=== PATIENT | male | born 1955 | race Caucasian/White ===

== ENCOUNTER 2024-04-18 17:51 | Emergency (ER) | payer OTHER ==
[2024-04-18 18:24] VITALS: BMI 25.1
[2024-04-18] MEDS: ACETAMINOPHEN 1000 MG/100 ML BAG IVPB ONE (19:30)
[2024-04-18] MEDS: ONDANSETRON 4 MG/2 ML VIAL IVPB ONE (19:50)
[2024-04-18 19:58] LABS: BASO % 0.6 % (0-2.0); EOS % 0.5 % (0-4.5); HEMATOCRIT 39.4 % (35.4-49); HEMOGLOBIN 13.2 GM/dL (11.7-16.9); LYMPH % 10.8 % (8-40); MCH 31.4 pg (25.7-33.7); MCHC 33.4 g/dl (32.0-35.9); MEAN CELL VOLUME 93.9 fl (80-96); MEAN PLT VOLUME 9.4 fl (7.5-11.1); MONO % 6.2 % (3.8-10.2); NEUT % 81.9 % (42.8-82.8); PLATELET COUNT 305 10^3/uL (134-434); RDW 15.9 % (11.9-15.9); WHITE BLOOD COUNT 9.2 K/mm3 (4.0-10.0)
[2024-04-18 20:16] LABS: POTASSIUM 4.8 mmol/L (3.5-5.1)
[2024-04-18 20:19] LABS: CALCIUM 9.4 mg/dL (8.5-10.1)
[2024-04-18 20:20] LABS: ALBUMIN 3.2 g/dl (3.4-5.0); BLOOD UREA NITROGEN 51.2 mg/dL (7-18)
[2024-04-18 20:24] LABS: BILIRUBIN,TOTAL 0.5 mg/dL (0.2-1)
[2024-04-19] MEDS: diphenhydrAMINE HCL 25 MG CAPSULE (FP) PO ONE (01:36)
[2024-04-19] MEDS ORDERED: diphenhydrAMINE HCL 25 MG CAPSULE (FP) PO ONE (01:38)
[2024-04-19] MEDS ORDERED: ACETAMINOPHEN 500 MG TABLET (FP) ONE (09:49)
[2024-04-19] MEDS ORDERED: ONDANSETRON *ODT* 4 MG TABLET ONE (09:50)
[2024-04-19] MEDS: ACETAMINOPHEN 325 MG TABLET (FP) PO ONE (09:56)
[2024-04-19] MEDS: ONDANSETRON *ODT* 4 MG TABLET SL ONE (09:57)
[2024-04-19 11:02] VITALS: BP 147/70; PULSE 105; RESP 20; TEMP 98.8
[2024-04-19 13:02] LABS: EPI CELLS 32 /uL (0-25.1); HYALINE CASTS 553 /uL (0-3.1); URINE APPEARANCE TURBID; URINE BACTERIA 1334 /uL (0-1359); URINE BILIRUBIN NEGATIVE (NEGATIVE); URINE COLOR YELLOW; URINE GLUCOSE (UA) NEGATIVE (NEGATIVE); URINE KETONE TRACE (NEGATIVE); URINE LEUK ESTERASE 3+ (NEGATIVE); URINE NITRITE NEGATIVE (NEGATIVE); URINE PROTEIN 4+ (NEGATIVE); URINE UROBILINOGEN 0.2 mg/dL (0.2-1.0); URINE WBC 36065 /uL (0-25.8)
[2024-04-19 13:22] LABS: URINE RBC 1155 /uL (0-23.9); YEAST NONE SEEN (NEGATIVE)
[2024-04-19] MEDS ORDERED: CEPHALEXIN MONOHYDRATE 500 MG CAPSULE (UD) ONE (13:57)
[2024-04-19] MEDS: CEPHALEXIN MONOHYDRATE 500 MG CAPSULE (UD) PO ONE (14:04)
== END 2024-04-19 14:28 ==
LOC: JER 17:51
PROC: 3E033NZ Introduction of Analgesics, Hypnotics, Sedatives into Peripheral Vein, Percutaneous Approach (ICD-10-PCS; principal; 2024-04-18)
PROC: 3E033GC Introduction of Other Therapeutic Substance into Peripheral Vein, Percutaneous Approach (ICD-10-PCS; 2024-04-18)
DX: N39.0 Urinary tract infection, site not specified (principal); R10.31 Right lower quadrant pain; R11.2 Nausea with vomiting, unspecified; T78.1XXA Other adverse food reactions, not elsewhere classified, initial encounter
CPT/HCPCS: 36415; 74176-TC; 80053; 81003; 83605; 83690; 85025; 87086; 87186; 93005; 93010; 99285-25; J0131; Q0162

== ENCOUNTER 2024-11-30 11:08 | Inpatient (IN) | payer OTHER ==
[2024-11-30 12:48] VITALS: BMI 33.4
[2024-11-30 12:53] LABS: BASO % 0.7 % (0-2.0); EOS % 2.5 % (0-4.5); HEMATOCRIT 31.5 % (35.4-49); HEMOGLOBIN 10.3 GM/dL (11.7-16.9); LYMPH % 24.4 % (8-40); MCH 31.8 pg (25.7-33.7); MCHC 32.7 g/dl (32.0-35.9); MEAN PLT VOLUME 8.2 fl (7.5-11.1); MONO % 9.2 % (3.8-10.2); NEUT % 63.2 % (42.8-82.8); PLATELET COUNT 272 10^3/uL (134-434); RBC 3.25 M/mm3 (4.00-5.60); RDW 15.9 % (11.9-15.9); WHITE BLOOD COUNT 7.1 K/mm3 (4.0-10.0)
[2024-11-30 13:00] LABS: INR 1.22 (0.83-1.09); PROTHROMBIN TIME (PATIENT) 13.4 SEC (9.7-13.0)
[2024-11-30 13:02] LABS: VENOUS BASE EXCESS -0.7 mmol/L (-2-2); VENOUS O2 SATURATION 33.7 % (70-80); VENOUS PH 7.295 (7.310-7.410)
[2024-11-30 13:03] LABS: ACTIVATED PTT 31.5 SECONDS (25.2-36.5)
[2024-11-30 13:13] LABS: CHLORIDE 105 mmol/L (98-107); POTASSIUM 5.4 mmol/L (3.5-5.1); SODIUM 140 mmol/L (136-145)
[2024-11-30 13:15] LABS: BLOOD UREA NITROGEN 95.2 mg/dL (7-18); CALCIUM 8.8 mg/dL (8.5-10.1)
[2024-11-30 13:16] LABS: ANION GAP 8 mmol/L (4-13); CO2 27 mmol/L (21-32); GLUCOSE,RANDOM 194 mg/dL (74-106); MAGNESIUM 2.6 mg/dL (1.8-2.4)
[2024-11-30 13:18] LABS: SGPT/ALT 15 U/L (13-61)
[2024-11-30 13:19] LABS: PHOSPHOROUS 4.7 mg/dL (2.5-4.9); SGOT/AST 10 U/L (15-37)
[2024-11-30 13:20] LABS: BILIRUBIN,TOTAL 0.3 mg/dL (0.2-1); TOT PROT 8.4 g/dl (6.4-8.2)
[2024-11-30 13:21] LABS: ALK PHOS 137 U/L (45-117)
[2024-11-30 13:31] LABS: ERYTHROCYTE SEDIMENTATION RATE 108 mm/hr (0-20)
[2024-11-30 13:35] LABS: CREATININE 8.9 mg/dL (0.55-1.3)
[2024-11-30] MEDS ORDERED: PIPERACILLIN/TAZOB 3.375 GM 3.375 GM/50 ML BAG IVPB ONE (13:40)
[2024-11-30] MEDS ORDERED: SODIUM ZIRCONIUM CYCLOSILICATE (LOKELMA) 10 GM PACKET ONE (13:40)
[2024-11-30] MEDS ORDERED: PIPERACILLIN/TAZOB 2.25 GM 2.25 GM/50 ML BAG IVPB ONE (14:09)
[2024-11-30] MEDS: SODIUM ZIRCONIUM CYCLOSILICATE (LOKELMA) 5 GM PACKET PO ONE (14:09)
[2024-11-30] MEDS: PIPERACILLIN/TAZOB 2.25 GM 2.25 GM in DEXTROSE 5%-WATER - 50 ML IVPB ONE (14:09)
[2024-11-30] MEDS ORDERED: VANCOMYCIN 1 GM PREMIX (F) 1 GM/200 ML BAG ONE (15:48)
[2024-11-30] MEDS: VANCOMYCIN 1,000 MG in DEXTROSE 5%-WATER - 250 ML IVPB ONE (15:49)
[2024-11-30] MEDS: SEVELAMER CARBONATE 800 MG TAB (FP) PO SCH (18:35)
[2024-11-30] MEDS: PIPERACILLIN/TAZOB 4.5 GM 4.5 GM/100 ML BAG IVPB SCH (23:03)
[2024-11-30] MEDS: SODIUM ZIRCONIUM CYCLOSILICATE (LOKELMA) 5 GM PACKET PO SCH (23:04)
[2024-11-30] MEDS: GABAPENTIN 300 MG CAPSULE PO SCH (23:05)
[2024-11-30] MEDS: COLLAGENASE CLOSTRIDIUM HIST. 30 GRAMS TUBE TP SCH (23:06)
[2024-11-30] MEDS: APIXABAN 2.5 MG TABLET PO SCH (23:06)
[2024-11-30] MEDS: ATORVASTATIN CA 20 MG TABLET (FP) PO SCH (23:06)
[2024-12-01] MEDS: HEPARIN NA (PORCINE) 5,000 UNITS/ML 1ML VIAL IVPUSH ONE (09:53)
[2024-12-01] MEDS ORDERED: SODIUM CHLORIDE 250 ML IV PRN (10:00)
[2024-12-01 10:14] LABS: BASO % 0.7 % (0-2.0); EOS % 3.1 % (0-4.5); HEMOGLOBIN 9.3 GM/dL (11.7-16.9); LYMPH % 20.3 % (8-40); MCHC 33.2 g/dl (32.0-35.9); MEAN CELL VOLUME 96.3 fl (80-96); MEAN PLT VOLUME 8.7 fl (7.5-11.1); MONO % 9.6 % (3.8-10.2); NEUT % 66.3 % (42.8-82.8); PLATELET COUNT 243 10^3/uL (134-434); RDW 15.4 % (11.9-15.9); WHITE BLOOD COUNT 6.5 K/mm3 (4.0-10.0)
[2024-12-01 11:42] LABS: CHLORIDE 102 mmol/L (98-107); POTASSIUM 4.7 mmol/L (3.5-5.1); SODIUM 137 mmol/L (136-145)
[2024-12-01 11:51] LABS: CALCIUM 8.5 mg/dL (8.5-10.1)
[2024-12-01 11:52] LABS: ALBUMIN 2.6 g/dl (3.4-5.0); ANION GAP 13 mmol/L (4-13); BLOOD UREA NITROGEN 97.4 mg/dL (7-18); CO2 23 mmol/L (21-32)
[2024-12-01 11:53] LABS: GLUCOSE,RANDOM 220 mg/dL (74-106)
[2024-12-01 11:55] LABS: SGOT/AST 12 U/L (15-37); SGPT/ALT 14 U/L (13-61)
[2024-12-01 11:56] LABS: BILIRUBIN,TOTAL 0.6 mg/dL (0.2-1)
[2024-12-01 11:57] LABS: TOT PROT 7.4 g/dl (6.4-8.2)
[2024-12-01 11:58] LABS: ALK PHOS 107 U/L (45-117)
[2024-12-01 12:29] LABS: CREATININE 9.1 mg/dL (0.55-1.3)
[2024-12-01] MEDS: ASPIRIN COATED 81 MG TABLET.EC PO SCH (12:35)
[2024-12-02 09:43] LABS: HEMATOCRIT 32.7 % (35.4-49); HEMOGLOBIN 10.3 GM/dL (11.7-16.9); MCH 31.1 pg (25.7-33.7); MCHC 31.7 g/dl (32.0-35.9); MEAN CELL VOLUME 98.4 fl (80-96); MEAN PLT VOLUME 8.6 fl (7.5-11.1); PLATELET COUNT 275 10^3/uL (134-434); RBC 3.32 M/mm3 (4.00-5.60); RDW 15.5 % (11.9-15.9)
[2024-12-02 10:03] LABS: POTASSIUM 4.4 mmol/L (3.5-5.1)
[2024-12-02 10:06] LABS: ALBUMIN 2.8 g/dl (3.4-5.0); CALCIUM 8.8 mg/dL (8.5-10.1); MAGNESIUM 2.2 mg/dL (1.8-2.4)
[2024-12-02 10:10] LABS: CREATININE 6.3 mg/dL (0.55-1.3); PHOSPHOROUS 4.8 mg/dL (2.5-4.9)
[2024-12-02 10:11] LABS: BILIRUBIN,TOTAL 0.4 mg/dL (0.2-1); BLOOD UREA NITROGEN 61.3 mg/dL (7-18); TOT PROT 8.5 g/dl (6.4-8.2)
[2024-12-02] MEDS: VANCOMYCIN 1 GM PREMIX (F) 1 GM/200 ML BAG IVPB ONE (15:03)
[2024-12-02] MEDS: PIPERACILLIN/TAZOB 4.5 GM 4.5 GM/100 ML BAG IVPB SCH (21:15)
[2024-12-03 09:09] LABS: HEMATOCRIT 29.1 % (35.4-49); HEMOGLOBIN 9.4 GM/dL (11.7-16.9); MCH 31.5 pg (25.7-33.7); MCHC 32.2 g/dl (32.0-35.9); MEAN CELL VOLUME 97.7 fl (80-96); MEAN PLT VOLUME 8.6 fl (7.5-11.1); PLATELET COUNT 264 10^3/uL (134-434); RBC 2.98 M/mm3 (4.00-5.60); WHITE BLOOD COUNT 8.1 K/mm3 (4.0-10.0)
[2024-12-03 09:33] LABS: POTASSIUM 4.2 mmol/L (3.5-5.1)
[2024-12-03 09:54] LABS: CALCIUM 8.3 mg/dL (8.5-10.1)
[2024-12-03 09:56] LABS: ALBUMIN 2.5 g/dl (3.4-5.0); BLOOD UREA NITROGEN 71.6 mg/dL (7-18); MAGNESIUM 2.1 mg/dL (1.8-2.4)
[2024-12-03 09:58] LABS: CREATININE 6.6 mg/dL (0.55-1.3); PHOSPHOROUS 5.4 mg/dL (2.5-4.9)
[2024-12-03 10:00] LABS: BILIRUBIN,TOTAL 0.4 mg/dL (0.2-1); TOT PROT 7.5 g/dl (6.4-8.2)
[2024-12-03] MEDS: EPOETIN ALFA-EPBX 10,000 UNIT/ML VIAL SQ ONE (11:08)
[2024-12-03] MEDS ORDERED: SODIUM CHLORIDE 250 ML IV PRN ×2 (12:54→18:56)
[2024-12-03] MEDS: ERTAPENEM SODIUM 1 GM in SODIUM CHLORIDE 50 ML IVPB SCH (16:47)
[2024-12-04 09:53] LABS: HEMATOCRIT 31.1 % (35.4-49); HEMOGLOBIN 10.2 GM/dL (11.7-16.9); MCH 31.6 pg (25.7-33.7); MCHC 32.7 g/dl (32.0-35.9); MEAN CELL VOLUME 96.8 fl (80-96); MEAN PLT VOLUME 8.6 fl (7.5-11.1); PLATELET COUNT 264 10^3/uL (134-434); RBC 3.21 M/mm3 (4.00-5.60); RDW 15.2 % (11.9-15.9); WHITE BLOOD COUNT 7.5 K/mm3 (4.0-10.0)
[2024-12-04 10:15] LABS: POTASSIUM 4.1 mmol/L (3.5-5.1)
[2024-12-04 10:18] LABS: ALBUMIN 2.7 g/dl (3.4-5.0); BLOOD UREA NITROGEN 50.3 mg/dL (7-18); CALCIUM 8.6 mg/dL (8.5-10.1); MAGNESIUM 2.2 mg/dL (1.8-2.4)
[2024-12-04 10:21] LABS: CREATININE 5.4 mg/dL (0.55-1.3)
[2024-12-04 10:22] LABS: PHOSPHOROUS 4.9 mg/dL (2.5-4.9)
[2024-12-04 10:23] LABS: BILIRUBIN,TOTAL 0.4 mg/dL (0.2-1); TOT PROT 8.2 g/dl (6.4-8.2)
[2024-12-04] MEDS: VANCOMYCIN 1 GM PREMIX (F) 1 GM/200 ML BAG IVPB ONE ×2 (10:28→10:29)
[2024-12-04] MEDS: HEPARIN NA (PORCINE) 5,000 UNITS/ML 1ML VIAL IVPUSH ONE (10:28)
[2024-12-04 10:29] LABS: ERYTHROCYTE SEDIMENTATION RATE 109 mm/hr (0-20)
[2024-12-04] MEDS: PIPERACILLIN/TAZOB 4.5 GM 4.5 GM/100 ML BAG IVPB SCH (10:29)
[2024-12-06] MEDS: ERTAPENEM SODIUM 0.5 GM in SODIUM CHLORIDE 50 ML IVPB ONE (17:51)
[2024-12-06] MEDS ORDERED: SODIUM CHLORIDE 250 ML IV PRN (20:50)
[2024-12-07] MEDS: EPOETIN ALFA-EPBX 10,000 UNIT/ML VIAL SQ ONE (17:36)
[2024-12-08 09:31] LABS: HEMATOCRIT 30.7 % (35.4-49); MCH 31.6 pg (25.7-33.7); MCHC 32.5 g/dl (32.0-35.9); MEAN CELL VOLUME 97.2 fl (80-96); MEAN PLT VOLUME 8.8 fl (7.5-11.1); PLATELET COUNT 290 10^3/uL (134-434); RBC 3.16 M/mm3 (4.00-5.60); RDW 14.9 % (11.9-15.9); WHITE BLOOD COUNT 8.2 K/mm3 (4.0-10.0)
[2024-12-08 10:01] LABS: POTASSIUM 3.9 mmol/L (3.5-5.1)
[2024-12-08 10:14] LABS: BLOOD UREA NITROGEN 58.4 mg/dL (7-18); CALCIUM 8.5 mg/dL (8.5-10.1); MAGNESIUM 2.1 mg/dL (1.8-2.4)
[2024-12-08 10:15] LABS: ALBUMIN 2.7 g/dl (3.4-5.0)
[2024-12-08 10:18] LABS: CREATININE 5.8 mg/dL (0.55-1.3); PHOSPHOROUS 4.8 mg/dL (2.5-4.9)
[2024-12-08 10:20] LABS: BILIRUBIN,TOTAL 0.3 mg/dL (0.2-1)
[2024-12-08 17:22] VITALS: BP 148/88; PULSE 84; RESP 16; TEMP 98.4
== END 2024-12-08 20:40 | disposition short-term general hospital (02) | DRG 299 ==
LOC: JER 11:08 → JERBED 13:54 → J6S 16:59
PROVIDERS: ADMIT Internal Medicine; ATTEND Internal Medicine
PROC: 5A1D70Z Performance of Urinary Filtration, Intermittent, Less than 6 Hours Per Day (ICD-10-PCS; principal; 2024-12-01)
PROC: 5A1D70Z Performance of Urinary Filtration, Intermittent, Less than 6 Hours Per Day (ICD-10-PCS; 2024-12-03)
PROC: 5A1D70Z Performance of Urinary Filtration, Intermittent, Less than 6 Hours Per Day (ICD-10-PCS; 2024-12-07)
DX: E11.52 Type 2 diabetes mellitus with diabetic peripheral angiopathy with gangrene (principal); N18.6 End stage renal disease; L97.428 Non-pressure chronic ulcer of left heel and midfoot with other specified severity; I12.0 Hypertensive chronic kidney disease with stage 5 chronic kidney disease or end stage renal disease; M86.8X7 Other osteomyelitis, ankle and foot; L03.116 Cellulitis of left lower limb; E11.621 Type 2 diabetes mellitus with foot ulcer; E78.5 Hyperlipidemia, unspecified; D64.9 Anemia, unspecified; E11.22 Type 2 diabetes mellitus with diabetic chronic kidney disease; E87.5 Hyperkalemia; E11.69 Type 2 diabetes mellitus with other specified complication; B96.1 Klebsiella pneumoniae [K. pneumoniae] as the cause of diseases classified elsewhere; B95.1 Streptococcus, group B, as the cause of diseases classified elsewhere; R23.4 Changes in skin texture; Z89.611 Acquired absence of right leg above knee; Z99.2 Dependence on renal dialysis
CPT/HCPCS: 0241U-QW; 36415; 71045-TC-FY; 73630-TC-LT; 73718-TC-LT; 80048; 80053; 82550; 82803; 82962; 83036; 83735; 84100; 84484; 85025; 85027; 85610; 85651; 85730; 86140; 86704; 86850; 86900; 86901; 87040; 87070; 87077; 87186; 87205; 87340; 87517; 93005; 93010; 93922; 93926-TC; 99285-25; G0480; J0878; J1644; Q5106

== ENCOUNTER 2025-03-31 12:10 | Inpatient (IN) | payer OTHER ==
[2025-03-31 14:40] LABS: ABSOLUTE IMMATURE GRANULOCYTES 0.02 x10^3/uL (0.0-0.031); BASOPHILS # 0.08 x10^3/uL (0.01-0.08); EOSINOPHIL % 2.4 % (0.8-7.0); EOSINOPHILS # 0.16 x10^3/uL (0.04-0.54); HEMATOCRIT 33.6 % (40.1-51.0); HEMOGLOBIN 10.7 g/dL (13.7-17.5); MCHC 31.8 g/dl (32.3-36.5); MEAN CELL VOLUME 103.7 fl (79.0-92.2); MEAN PLT VOLUME 10.7 fl (9.4-12.4); MONOCYTE # 0.64 x10^3/uL (0.30-0.82); MONOCYTE % 9.7 % (5.3-12.2); PLATELET COUNT 229 x10^3/uL (163-337); RDW 14.5 % (12.2-16.4)
[2025-03-31 14:51] LABS: INR 1.01 (0.83-1.09)
[2025-03-31 14:53] LABS: ACTIVATED PTT 29.7 SECONDS (25.2-36.5)
[2025-03-31 15:11] LABS: CHLORIDE 98 mmol/L (98-107); POTASSIUM 4.6 mmol/L (3.5-5.1); SODIUM 135 mmol/L (136-145)
[2025-03-31 15:15] LABS: ANION GAP 7 mmol/L (4-13); CALCIUM 9.1 mg/dL (8.5-10.1); CO2 30 mmol/L (21-32)
[2025-03-31 15:16] LABS: ALBUMIN 3.3 g/dl (3.4-5.0); BLOOD UREA NITROGEN 54.2 mg/dL (7-18); GLUCOSE,RANDOM 246 mg/dL (74-106)
[2025-03-31 15:18] LABS: SGPT/ALT 23 U/L (13-61)
[2025-03-31 15:19] LABS: CREATININE 5.7 mg/dL (0.55-1.3); SGOT/AST 13 U/L (15-37)
[2025-03-31 15:20] LABS: BILIRUBIN,TOTAL 0.3 mg/dL (0.2-1); TOT PROT 8.4 g/dl (6.4-8.2)
[2025-03-31 15:21] LABS: ERYTHROCYTE SEDIMENTATION RATE 91 mm/hr (0-20)
[2025-03-31] MEDS ORDERED: MEROPENEM 1 GM VIAL (RESTRICTED TO ID) IVPB ONE (15:21)
[2025-03-31] MEDS ORDERED: VANCOMYCIN 1 GM PREMIX (F) 1 GM/200 ML BAG ONE (15:21)
[2025-03-31 15:22] LABS: ALK PHOS 201 U/L (45-117)
[2025-03-31] MEDS: MEROPENEM 1 GM in DEXTROSE 5%-WATER 100 ML IVPB ONE (15:38)
[2025-03-31] MEDS: VANCOMYCIN 1,000 MG in DEXTROSE 5%-WATER - 250 ML IVPB ONE (16:54)
[2025-03-31] MEDS: INSULIN ASPART SLIDING SCALE (NOVOLOG) 1 VIAL SQ SCH (17:20)
[2025-03-31 18:46] VITALS: BMI 27.5
[2025-03-31] MEDS: GABAPENTIN 300 MG CAPSULE PO SCH (22:44)
[2025-03-31] MEDS: HEPARIN NA (PORCINE) 5,000 UNITS/ML 1ML VIAL SQ SCH (22:44)
[2025-03-31] MEDS: ATORVASTATIN CA 20 MG TABLET (FP) PO SCH (22:44)
[2025-03-31] MEDS: INSULIN GLARGINE (LANTUS) 100 UNITS/ML UNITS SQ SCH (22:44)
[2025-04-01 08:02] LABS: ABSOLUTE IMMATURE GRANULOCYTES 0.02 x10^3/uL (0.0-0.031); BASOPHILS # 0.06 x10^3/uL (0.01-0.08); EOSINOPHIL % 2.7 % (0.8-7.0); EOSINOPHILS # 0.18 x10^3/uL (0.04-0.54); HEMATOCRIT 31.4 % (40.1-51.0); HEMOGLOBIN 9.9 g/dL (13.7-17.5); MCHC 31.5 g/dl (32.3-36.5); MEAN CELL VOLUME 102.6 fl (79.0-92.2); MEAN PLT VOLUME 11.4 fl (9.4-12.4); MONOCYTE # 0.61 x10^3/uL (0.30-0.82); MONOCYTE % 9.3 % (5.3-12.2); PLATELET COUNT 202 x10^3/uL (163-337); RDW 14.5 % (12.2-16.4)
[2025-04-01 08:24] LABS: POTASSIUM 5.1 mmol/L (3.5-5.1)
[2025-04-01 08:33] LABS: ALBUMIN 2.9 g/dl (3.4-5.0); BLOOD UREA NITROGEN 72.1 mg/dL (7-18); MAGNESIUM 2.3 mg/dL (1.8-2.4)
[2025-04-01 08:36] LABS: BILIRUBIN,TOTAL 0.3 mg/dL (0.2-1); CREATININE 6.4 mg/dL (0.55-1.3); PHOSPHOROUS 4.8 mg/dL (2.5-4.9); TOT PROT 7.4 g/dl (6.4-8.2)
[2025-04-01] MEDS: ASPIRIN COATED 81 MG TABLET.EC PO SCH (09:19)
[2025-04-01] MEDS: CLOPIDOGREL BISULFATE 75 MG TABLET (FP) PO SCH (09:19)
[2025-04-01] MEDS ORDERED: SODIUM CHLORIDE 250 ML IV PRN (09:51)
[2025-04-01] MEDS: HEPARIN NA (PORCINE) 5,000 UNITS/ML 1ML VIAL IVPUSH ONE (10:00)
[2025-04-01] MEDS ORDERED: MEROPENEM 1 GM in DEXTROSE 5%-WATER 100 ML IVPB SCH (10:00)
[2025-04-01] MEDS: EPOETIN ALFA-EPBX 10,000 UNIT/ML VIAL SQ ONE (10:30)
[2025-04-01 11:26] LABS: HEPATITIS B SURF AG NON-MATERN NON-REACTIVE (NONREACTIVE)
[2025-04-01 12:01] VITALS: RESP 18
[2025-04-01] MEDS: MEROPENEM 1 GM in DEXTROSE 5%-WATER 100 ML IVPB SCH (13:06)
[2025-04-01 13:09] LABS: HCV DIAGNOSTIC IN-HOUSE W/RFLX NON-REACTIVE (NONREACTIVE)
[2025-04-01] MEDS: COLLAGENASE CLOSTRIDIUM HIST. 30 GRAMS TUBE TP SCH (13:10)
[2025-04-01] MEDS ORDERED: VANCOMYCIN 750 MG in DEXTROSE 5%-WATER - 150 ML IVPB SCH (17:30)
[2025-04-02 08:25] LABS: ABSOLUTE IMMATURE GRANULOCYTES 0.02 x10^3/uL (0.0-0.031); BASOPHILS # 0.06 x10^3/uL (0.01-0.08); EOSINOPHILS # 0.18 x10^3/uL (0.04-0.54); HEMOGLOBIN 9.8 g/dL (13.7-17.5); MCHC 31.6 g/dl (32.3-36.5); MEAN CELL VOLUME 104.7 fl (79.0-92.2); MEAN PLT VOLUME 11.2 fl (9.4-12.4); PLATELET COUNT 207 x10^3/uL (163-337); RDW 14.4 % (12.2-16.4)
[2025-04-02 10:47] VITALS: TEMP 98.2
[2025-04-02 15:14] VITALS: BP 118/80; PULSE 93
[2025-04-02] MEDS: ERTAPENEM SODIUM 1 GM in SODIUM CHLORIDE 50 ML IVPB SCH (15:50)
[2025-04-02] MEDS: VANCOMYCIN/WATER FOR INJ (PEG) 750 MG/150 ML BAG IVPB SCH (15:50)
[2025-04-02] MEDS ORDERED: VANCOMYCIN/WATER FOR INJ (PEG) 750 MG/150 ML BAG IVPB SCH (17:00)
[2025-04-03] MEDS ORDERED: ERTAPENEM SODIUM 1 GM in SODIUM CHLORIDE 50 ML IVPB SCH (14:00)
[2025-04-03] MEDS ORDERED: VANCOMYCIN/WATER FOR INJ (PEG) 750 MG/150 ML BAG IVPB SCH (14:00)
== END 2025-04-02 16:39 | disposition home health service (06) | DRG 638 ==
LOC: JER 12:10 → JERBED 15:29 → J8W 18:06
PROVIDERS: ADMIT Internal Medicine; ATTEND Nurse Practitioner Family
PROC: 5A1D70Z Performance of Urinary Filtration, Intermittent, Less than 6 Hours Per Day (ICD-10-PCS; principal; 2025-04-01)
DX: E11.621 Type 2 diabetes mellitus with foot ulcer (principal); I12.0 Hypertensive chronic kidney disease with stage 5 chronic kidney disease or end stage renal disease; L03.116 Cellulitis of left lower limb; L97.429 Non-pressure chronic ulcer of left heel and midfoot with unspecified severity; N18.6 End stage renal disease; E11.22 Type 2 diabetes mellitus with diabetic chronic kidney disease; I25.10 Atherosclerotic heart disease of native coronary artery without angina pectoris; E78.5 Hyperlipidemia, unspecified; L97.509 Non-pressure chronic ulcer of other part of unspecified foot with unspecified severity; Z89.619 Acquired absence of unspecified leg above knee; E11.628 Type 2 diabetes mellitus with other skin complications; L08.9 Local infection of the skin and subcutaneous tissue, unspecified; Z99.2 Dependence on renal dialysis; E11.65 Type 2 diabetes mellitus with hyperglycemia
CPT/HCPCS: 36415; 73610-TC-LT-FY; 73630-TC-LT; 80053; 82962; 83036; 83735; 84100; 85025; 85610; 85651; 85730; 86140; 86704; 86705; 86708; 86709; 86803; 86850; 86900; 86901; 87040; 87340; 87517; 93005; 93010; 99285-25; G0463-25; Q5106